=== PATIENT | female | born 1995 ===

== ENCOUNTER 2017-08-12 21:08 | Emergency (ER) | payer OTHER ==
[2017-08-12 22:56] LABS: ABS Basophils 0.1 10^3/ul (0-0.2); ABS Eosinophils 0.1 10^3/ul (0-0.6); ABS Lymphocytes 2.1 10^3/ul (1.0-4.8); ABS Monocytes 0.7 10^3/ul (0-0.8); ABS Neutrophils 5.2 10^3/ul (1.5-7.7); ABS Nucleated RBC 0 10^3/ul; Eosinophil % 1.6 % (0-6); Hematocrit 41 % (35-47); Hemoglobin 13.8 g/dl (12.0-16.0); Mean Corpuscular HGB Conc 34 g/dl (31-36); Mean Corpuscular Hemoglobin 30 pg (27-31); Mean Corpuscular Volume 90 fL (80-97); Mean Platelet Volume 9.6 um3 (7.4-10.4); Nucleated Red Blood Cells % 0; Platelet Count 246 10^3/ul (150-450); Red Blood Count 4.56 10^6/ul (4.0-5.4); Red Cell Distribution Width 12 % (10.5-15); White Blood Count 8.2 10^3/ul (3.5-10.8)
[2017-08-12 23:09] LABS: Urine Appearance Cloudy; Urine Blood 1+ (Negative); Urine Color Yellow; Urine Ketones Negative (Negative); Urine Protein Negative (Negative); Urine Specific Gravity 1.012 (1.010-1.030); Urine Urobilinogen Negative (Negative)
[2017-08-12 23:13] LABS: EGFR Non-African American 66.9 (>60)
[2017-08-12] MEDS ORDERED: Ibuprofen TAB* 600 MG PO ONE (23:54)
[2017-08-13] MEDS ORDERED: Iohexol 300* (CONTRAST) 10 ML SDV IV ONE (01:03)
[2017-08-13 05:42] VITALS: BP 121/79
--- NOTE | 2017-08-13 06:25 | ED ---
Jovanny Escobar Nikita, scribed for Tommy Jensen MD on 08/13/17 at 0000 . Abdominal Pain/Female - HPI Summary HPI Summary: This patient is a 22 year old F presenting to ED with a chief complaint of mid- abdominal pain since earlier today. The CC is described as cramping after she felt something pop. The patient rates the pain 8/10 in severity. Symptoms aggravated by nothing. Symptoms alleviated by nothing. Patient reports nausea ( since 4-5 days ago) and decreased appetite. Patient denies fever and BM problems. - History of Current Complaint Chief Complaint: EDAbdPain Stated Complaint: ABD PAIN Time Seen by Provider: 08/12/17 23:47 Hx Obtained From: Patient Onset/Duration: Sudden Onset, Lasting Days, Still Present Timing: Intermittent Episode Lasting Severity Initially: Moderate Severity Currently: Moderate Pain Intensity: 8 Pain Scale Used: 0-10 Numeric Location: Other - mid-abdominal pain Character: Cramping Aggravating Factor(s): Nothing Alleviating Factor(s): Nothing Associated Signs and Symptoms: Positive: Other: - Patient reports nausea (since 4-5 days ago) and decreased appetite. Patient denies fever and BM problems. Allergies/Adverse Reactions: Allergies Allergy/AdvReac Type Severity Reaction Status Date / Time No Known Allergies Allergy Verified 08/12/17 21:33 Home Medications: Home Medications NK [No Home Medications Reported] 08/13/17 [History Confirmed 08/13/17] PMH/Surg Hx/FS Hx/Imm Hx Endocrine/Hematology History: Reports: Other Endocrine/Hematological Disorders - HUS Denies: Hx Diabetes Cardiovascular History: Denies: Hx Coronary Artery Disease, Hx Hypertension Musculoskeletal History: Denies: Hx Rheumatoid Arthritis, Hx Osteoporosis Infectious Disease History: No Infectious Disease History: Denies: Traveled Outside the [place] in Last 30 Days - Family History Known Family History: Negative: Diabetes - Social History Alcohol Use: Occasionally Substance Use Type: Reports: None Smoking Status (MU): Never Smoked Tobacco Review of Systems Negative: Fever Positive: Abdominal Pain - mid, cramping after she heard something "pop", Nausea , Other - decreased appetite; denies BM problems All Other Systems Reviewed And Are Negative: Yes Physical Exam - Summary Physical Exam Summary: Appearance: Well appearing, no pain distress Skin: warm, dry, reflects adequate perfusion Head/face: normal Eyes: EOMI, STEPHANIE ENT: normal Neck: supple, non-tender Respiratory: CTA, breath sounds present Cardiovascular: RRR, pulses symmetrical Abdomen: R sided pelvic discomfort, no rebound or guarding, Mild McBurneys point tenderness, negative psoaz and obturator Bowel Sounds: present Musculoskeletal: normal, strength/ROM intact Neuro: normal, sensory motor intact, A&Ox3 Triage Information Reviewed: Yes Vital Signs On Initial Exam: Initial Vitals Temp Pulse Resp BP Pulse Ox 98.9 F 87 16 125/88 100 08/12/17 21:30 08/12/17 21:30 08/12/17 21:30 08/12/17 21:30 08/12/17 21:30 Vital Signs Reviewed: Yes Diagnostics - Vital Signs Vital Signs Temp Pulse Resp BP Pulse Ox 08/12/17 21:30 98.9 F 87 16 125/88 100 - Laboratory Lab Results: Lab Results 08/12/17 08/12/17 08/12/17 Range/Units 21:34 22:46 22:46 WBC 8.2 (3.5-10.8) 10^3/ul RBC 4.56 (4.0-5.4) 10^6/ul Hgb 13.8 (12.0-16.0) g/dl Hct 41 (35-47) % MCV 90 (80-97) fL MCH 30 (27-31) pg MCHC 34 (31-36) g/dl RDW 12 (10.5-15) % Plt Count 246 (150-450) 10^3/ul MPV 9.6 (7.4-10.4) um3 Neut % (Auto) 63.8 (38-83) % Lymph % (Auto) 26.0 (25-47) % Greenlee % (Auto) 8.0 H (0-7) % Eos % (Auto) 1.6 (0-6) % Baso % (Auto) 0.6 (0-2) % Absolute Neuts (auto) 5.2 (1.5-7.7) 10^3/ul Absolute Lymphs (auto) 2.1 (1.0-4.8) 10^3/ul Absolute Monos (auto) 0.7 (0-0.8) 10^3/ul Absolute Eos (auto) 0.1 (0-0.6) 10^3/ul Absolute Basos (auto) 0.1 (0-0.2) 10^3/ul Absolute Nucleated RBC 0 10^3/ul Nucleated RBC % 0 Sodium 136 L (139-145) mmol/L Potassium 4.2 (3.5-5.0) mmol/L Chloride 102 (101-111) mmol/L Carbon Dioxide 26 (22-32) mmol/L Anion Gap 8 (2-11) mmol/L BUN 16 (6-24) mg/dL Creatinine 1.04 H (0.51-0.95) mg/dL Est GFR ( Amer) 86.0 (>60) Est GFR (Non-Af Amer) 66.9 (>60) BUN/Creatinine Ratio 15.4 (8-20) Glucose 94 (70-100) mg/dL Calcium 9.5 (8.6-10.3) mg/dL Total Bilirubin 0.40 (0.2-1.0) mg/dL AST 23 (13-39) U/L ALT 10 (7-52) U/L Alkaline Phosphatase 59 (34-104) U/L C-Reactive Protein 5.89 H (< 5.00) mg/L Total Protein 7.8 (6.4-8.9) g/dL Albumin 4.2 (3.2-5.2) g/dL Globulin 3.6 (2-4) g/dL Albumin/Globulin Ratio 1.2 (1-3) Lipase 33 (11.0-82.0) U/L Urine Color Yellow Urine Appearance Cloudy Urine pH 7.0 (5-9) Ur Specific Rampart 1.012 (1.010-1.030) Urine Protein Negative (Negative) Urine Ketones Negative (Negative) Urine Blood 1+ A (Negative) Urine Nitrate Negative (Negative) Urine Bilirubin Negative (Negative) Urine Urobilinogen Negative (Negative) Ur Leukocyte Esterase Negative (Negative) Urine WBC (Auto) Trace(0-5/hpf) (Absent) Urine RBC (Auto) Trace(0-2/hpf) (Absent) Ur Squamous Epith Cells Present A (Absent) Urine Bacteria Absent (Absent) Urine Glucose Negative (Negative) Result Diagrams: 08/12/17 22:46 08/12/17 22:46 Lab Statement: Any lab studies that have been ordered have been reviewed, and results considered in the medical decision making process. - CT abd/pel CT Interpretation Completed By: Radiologist - No evidence of acute pathology. Moderate amount of diffuse solid stool. ED physician has reviewed this radipology report. - Additional Comments Diagnostic Additional Comments: ED physician reading: Transvaginal US: Ovaries are normal, no torsion. Pelvic US : no appendix visualized. Re-Evaluation - Re-Evaluation First Eval Re-Evaluation Time: 00:56 Change: Improved Comment: The patient still has RLQ pain, dulled with Ibuprofen. Discussed results with the patient. Second Eval Change: Improved - pt's pain resolved. Abdominal Pain Fem Course/Dx - Course Course Of Treatment: Pt with R pelvic discomfort. US pelvis neg but unable to visualize appendix on US. CT performed accordingly as tender in the RLQ as well. Appendix normal and there is stool seen on CT that likely is causative. Pt 's discomfort improved. Outpt miralax, high fiber etc. - Diagnoses Differential Diagnosis: Positive: Appendicitis, Constipation, Ectopic , Pancreatitis, Pelvic Inflammatory Disease, Peptic Ulcer Disease, , Urinary Tract Infection Provider Diagnoses: Constipation, Right lower quadrant abdominal pain Discharge - Sign-Out/Discharge Documenting (check all that apply): Discharge - Discharge Plan Condition: Stable Disposition: HOME Patient Education Materials: Constipation (ED) [facility] [Primary Care Provider] - Additional Instructions: Please return to the ED for any new or worsening symptoms. Take natural fruit juices, be on a high fiber diet, and take miralax 3 times a day until stool is loose. - Billing Disposition and Condition Condition: STABLE Disposition: HOME The documentation as recorded by the Jovanny nuñez Nikita accurately reflects the service I personally performed and the decisions made by me, Tommy Jensen MD.
--- NOTE | 2017-08-13 07:54 | RAD ---
INDICATION: Right-sided pelvic pain COMPARISON: None. TECHNIQUE: Real-time transabdominal only ultrasound examination of the female pelvis including grayscale and Doppler color flow imaging. FINDINGS: Uterus: The uterus is normal in size and echogenicity measuring 8.5 x 2.6 x 5.1 cm. The endometrial stripe is smooth and uniform measuring 9 mm in thickness. Ovaries: The right and left ovary measure 2.8 x 1.4 x 2.2 cm and 4.1 x 0.8 x 1.9 cm, respectively. Normal arterial and venous waveforms are identified. Appearance is within normal limits for the patient's age. There is no free fluid in the cul-de-sac. IMPRESSION: Normal and age-appropriate pelvic ultrasound.
--- NOTE | 2017-08-13 08:03 | RAD ---
INDICATION: Right lower quadrant pain. COMPARISON: None TECHNIQUE: Real time ultrasound images of the right lower quadrant were acquired in jackson scale and Doppler color flow. FINDINGS: The appendix is not discreetly visualized. Normal loops of bowel are seen. There is no acute inflammatory change, measurable lymphadenopathy or drainable fluid collection. IMPRESSION: Nonvisualization of the appendix.
--- NOTE | 2017-08-13 08:12 | RAD ---
CLINICAL HISTORY: Right lower quadrant pain COMPARISON: None TECHNIQUE: Contrast enhanced CT examination of the abdomen and pelvis from the lung bases through the initial tuberosities. The patient received 81 mL Omnipaque 300 intravenously prior to imaging.The patient received oral contrast as well prior to imaging. FINDINGS: VISUALIZED LUNG BASES: The visualized lung bases are grossly clear. There is no pleural effusion. ABDOMEN AND PELVIS: The liver, spleen, pancreas and adrenal glands are grossly normal in appearance. The gallbladder is normal. The kidneys are normal in appearance without focal mass, calcification or signs of hydronephrosis. Evaluation of the gastrointestinal tract is limited without oral contrast. The small and large bowel are not distended. The patient's normal appendix is identified in the right lower quadrant measuring 6 mm in diameter with gas in the lumen (coronal image 40 and axial image 57). There is no gross retroperitoneal or mesenteric lymphadenopathy. The pelvic viscera is normal in appearance. The abdominal aorta and iliac arteries are normal in course and diameter. There are no sinister bone lesions. IMPRESSION: Normal CT examination.
== END 2017-08-13 05:41 | disposition home or self-care (01) ==
LOC: ED 21:08
DX: K59.00 Constipation, unspecified (principal); R10.31 Right lower quadrant pain
CPT/HCPCS: 36415; 74177; 76705; 76856; 80053; 81003; 81015; 83690; 85025; 86140; 87086; 87491; 87591; 99284; A9270-GY; Q9967